=== PATIENT | female | born 1980 | race Two or more races ===

== ENCOUNTER 2022-11-07 07:30 | Emergency (ER) | payer OTHER ==
[~2022-11-07] VITALS: Ht 157.5 cm; Wt 49.9 kg
[2022-11-07] MEDS ORDERED: PROCHLORPERAZINE EDISYLATE 10 MG/2 ML VIAL IVP ONE (08:00)
[2022-11-07] MEDS ORDERED: DEXAMETHASONE SOD PHOSPHATE 10 MG/ML VIAL IV ONE (08:00)
[2022-11-07] MEDS ORDERED: KETOROLAC TROMETHAMINE INJ 30 MG/ML VIAL IV ONE ×2 (08:00→10:30)
[2022-11-07] MEDS ORDERED: ACETAMINOPHEN ES 500 MG TABLET PO ONE (08:00)
[2022-11-07] MEDS ORDERED: diphenhydrAMINE HCL 50 MG/ML VIAL IV ONE ×2 (08:00→11:30)
[2022-11-07] MEDS ORDERED: IV NS 0.9% 1,000 ML BAG IV ONE (08:00)
[2022-11-07] MEDS ORDERED: DEXAMETHASONE SOD PHOSPHATE 10 MG/ML VIAL ONE (08:23)
[2022-11-07] MEDS ORDERED: KETOROLAC TROMETHAMINE 15 MG/ML VIAL ONE ×2 (08:23→10:21)
[2022-11-07] MEDS ORDERED: diphenhydrAMINE HCL 50 MG/ML VIAL ONE ×2 (08:23→11:08)
[2022-11-07] MEDS ORDERED: ACETAMINOPHEN ES 500 MG TABLET ONE (08:24)
[2022-11-07] MEDS ORDERED: PROCHLORPERAZINE EDISYLATE 10 MG/2 ML VIAL ONE (08:24)
--- NOTE | 2022-11-07 09:13 | NUR ---
Multiple sticks attempted. Unable to establish IV line Pt states "I am a hardstick they usually ask for US"- Mid Line Requested. Awaiting ETA - MD Sam notified. Pt requesting for "pain meds IM". changed orders to IM for Toradol and Benadryl
[2022-11-07] MEDS ORDERED: VALPROATE 500 MG in IV D5W 100 ML IV STA (10:13)
--- NOTE | 2022-11-07 10:30 | NUR ---
Pt re-evaluated and updated with plan of care. NO acute changes. Medicated as per orders
[2022-11-07] MEDS ORDERED: HYDROMORPHONE MDV 1 MG in IV D5W 50 ML IV STA (10:50)
[2022-11-07] MEDS ORDERED: HYDROMORPHONE 1 MG/1 ML DISP.SYRIN ONE (11:00)
[2022-11-07] MEDS ORDERED: IV NS 0.9% 1,000 ML IV ONE (11:00)
[2022-11-07 11:57] VITALS: BP 142/85
--- NOTE | 2022-11-07 11:58 | NUR ---
Pt states "Feeling a little better- ready to go home" Patient discharged to home Ambulatory in stable condition. Written and verbal after care instructions given. Patient verbalizes understanding of instruction. Home with Family.
== END 2022-11-07 11:58 | disposition home or self-care (01) ==
LOC: ER 07:37
DX: G43.909 Migraine, unspecified, not intractable, without status migrainosus (principal); Z88.5 Allergy status to narcotic agent; Z88.8 Allergy status to other drugs, medicaments and biological substances
CPT/HCPCS: 99284; 96365; 96374; 96375; 96372; J0780; J1100; J1170 ×2; J1200 ×2; J7060 ×3; J7030 ×2; J3490 ×2; J1885 ×2